=== PATIENT | male | born 2000 | race Two or more races ===

== ENCOUNTER 2020-01-07 10:49 | Emergency (ER) | payer MEDICAID, OTHER ==
[~2020-01-07] VITALS: Ht 182.9 cm; Wt 68.0 kg
[2020-01-07 11:42] LABS: Basophils # (auto) 0.1 10 ^3/uL (0-0.2); Basophils % (auto) 0.7 % (0.0-2.0); Eosinophils # (auto) 0.1 10 ^3/uL (0-0.8); Eosinophils % (auto) 0.7 % (0.0-7.0); Hemoglobin 15.2 g/dL (13.5-17.5); Lymphocytes # (auto) 1.6 10 ^3/uL (0.4-5.4); Lymphocytes % (auto) 18.6 % (10.0-50.0); Mean Corpuscular Hemoglobin 27.5 pg (28.0-32.0); Mean Corpuscular Volume 83.5 fL (80.0-100.0); Monocytes # (auto) 0.6 10 ^3/uL (0-1.3); Monocytes % (auto) 7.4 % (0.0-12.0); Neutrophils # (auto) 6.2 10 ^3/uL (1.6-8.6); Neutrophils % (auto) 72.6 % (37.0-80.0); Nucleated Red Blood Cells % 0.1 %; Platelet Count (auto) 290 10^3/uL (140-450); Red Blood Cells 5.51 10^6/uL (4.5-5.90); Red Cell Distribution Width 13.4 % (11.8-14.3); White Blood Cell 8.6 10^3/uL (4.4-10.8)
[2020-01-07 12:02] LABS: Albumin 4.5 g/dL (3.4-5.0); Anion Gap 4 (5-15); Blood Urea Nitrogen 9 mg/dL (7-18); Carbon Dioxide 28 mmol/L (21-32); Chloride 106 mmol/L (98-107); Glucose 99 mg/dL (74-106); Potassium 3.7 mmol/L (3.5-5.1); Sodium 138 mmol/L (136-145)
[2020-01-07 12:09] LABS: Alanine Aminotransferase 37 U/L (16-61); Alkaline Phosphatase 69 U/L (45-117); Aspartate Aminotransferase 18 U/L (15-37); BUN/Creatinine Ratio 8.7; Bilirubin, Total 0.6 mg/dL (0.2-1.0); GFR African American 118 mL/min; GFR Non-African American 98 mL/min; Total Protein 7.5 g/dL (6.4-8.2)
[2020-01-07 13:14] VITALS: BP 129/43
== END 2020-01-07 13:18 | disposition home or self-care (01) ==
LOC: ER 10:49
DX: R07.89 Other chest pain (principal); F41.9 Anxiety disorder, unspecified
CPT/HCPCS: 36415; 71046; 80053; 84484; 85025; 93005

== ENCOUNTER 2020-06-02 21:13 | Emergency (ER) | payer MEDICAID ==
[~2020-06-02] VITALS: Ht 182.9 cm; Wt 72.6 kg
[2020-06-02 22:33] LABS: Urine Amorphous Crystal FEW /hpf (None Seen); Urine Bacteria FEW /hpf (None Seen); Urine Blood 1+ /uL (Negative); Urine Specific Gravity 1.018 (1.001-1.035); Urine WBC 1 /hpf (0 - 3)
[2020-06-02 23:15] VITALS: BP 148/83
== END 2020-06-02 23:57 | disposition home or self-care (01) ==
LOC: ER 21:13
DX: M54.5 Low back pain (principal)
CPT/HCPCS: 81001

== ENCOUNTER 2022-03-17 08:47 | Emergency (ER) | payer MEDICAID ==
[~2022-03-17] VITALS: Ht 182.9 cm; Wt 70.5 kg
[2022-03-17 09:10] VITALS: BP 158/85
[2022-03-17] MEDS: KETOROLAC TROMETH 60MG/2ML VIAL IM ONE ×2 (10:29→10:31)
[2022-03-17] MEDS ORDERED: IBUPROFEN 800 MG TAB PO ONE (10:45)
[2022-03-17] MEDS ORDERED: IBUP800T27 PO (10:56)
[2022-03-17] MEDS ORDERED: CEPH-509 PO (10:56)
== END 2022-03-17 11:01 | disposition home or self-care (01) ==
LOC: ER 08:47
DX: L05.91 Pilonidal cyst without abscess (principal); J45.909 Unspecified asthma, uncomplicated
CPT/HCPCS: 99283; J1885

== ENCOUNTER 2022-03-20 13:44 | Emergency (ER) | payer MEDICAID ==
[~2022-03-20] VITALS: Ht 182.9 cm; Wt 79.3 kg
[~2022-03-20 13:44] MED LIST: CEPH-509 PO; IBUP800T27 PO
[2022-03-20 14:50] VITALS: BP 137/71
[2022-03-20] MEDS ORDERED: AMOX-277 PO (16:55)
[2022-03-20] MEDS ORDERED: cefTRIAXone SOD 1,000 MG VL IM ONE (17:00)
[2022-03-20] MEDS ORDERED: KETOROLAC TROMETH 60MG/2ML VIAL IM ONE (17:00)
== END 2022-03-20 17:56 | disposition home or self-care (01) ==
LOC: ER 13:44
DX: L05.01 Pilonidal cyst with abscess (principal); J45.909 Unspecified asthma, uncomplicated; Z79.2 Long term (current) use of antibiotics; Z79.1 Long term (current) use of non-steroidal anti-inflammatories (NSAID); Z79.899 Other long term (current) drug therapy
CPT/HCPCS: 96372; 99284; J0696; J1885